=== PATIENT | female | born 1995 | race Hispanic/Latino ===

== ENCOUNTER → 2020-08-16 12:58 | Outpatient (CLI) | payer SELFPAY ==
[2020-08-16 13:16] LABS: Mucous, Urine 0 SEEN /hpf (<or=2+)
[2020-08-16 13:27] LABS: Color, Urine Straw (Yellow); Glucose, Dipstick Normal (Normal); Ketone-Dipstick Negative (Negative); Leukocyte Esterase-Dipstick Negative /ul (Negative); Nitrite-Dipstick Negative (Negative); Occult Blood-Urine 10 /ul (Negative); Protein-Dipstick 15 mg/dl (Negative); Urine Bilirubin Dipstick Negative (Negative); Urine Clarity Clear (Clear); Urine Urobilinogen Normal (Normal)
[2020-08-16 13:46] LABS: Bacteria RARE /hpf (None Seen); Red Blood Cells-Urine 0-5 SEEN /hpf (0-5); Squamous Epithelial Cells - UA 0-5 SEEN /hpf (5-10); White Blood Cells 0 SEEN /hpf (0-5)
== END ==
LOC: LAB 13:05
PROVIDERS: Visit Provider Nurse Practitioner Family
DX: R30.0 Dysuria (principal); R31.9 Hematuria, unspecified
CPT/HCPCS: 81001; 87086

== ENCOUNTER 2023-09-08 14:47 | Emergency (ER) | payer SELFPAY ==
[2023-09-08 14:48] VITALS: BP 167/90; PULSE 105; RESP 22; TEMP 37.2; O2SAT 98
[2023-09-08 17:34] VITALS: O2SAT 98
--- NOTE | 2023-09-08 17:34 | ED.RN ---
NO OLD EKG
[2023-09-08 17:47] VITALS: BP 150/81; BP 153/96; BP 157/102; PULSE 100; PULSE 95; PULSE 98
[2023-09-08 17:50] LABS: Bedside Glucose 100 mg/dL (74-106)
--- NOTE | 2023-09-08 18:09 | CT_ITS ---
STUDY: CT ABDOMEN AND PELVIS WITH CONTRAST REASON FOR EXAM: Male, 28 years old. Left sided pain RADIATION DOSAGE (If Supplied By Facility): CTDIvol = ( 11.46 ) mGy, DLP = ( 861.32 ) mGycm TECHNIQUE: IV 100mL Isovue-300 was administered. Transaxial images were obtained from the dome of the diaphragm to the symphysis pubis in the portal venous phase. Multiplanar coronal and sagittal images were reformatted. Individualized Dose Optimization Techniques Were Used For This CT. COMPARISON: No relevant prior comparison study available FINDINGS: LOWER CHEST: Lung bases are clear. No cardiomegaly or pericardial effusion. LIVER: The liver is normal in size, shape, and attenuation. No focal mass. GALLBLADDER AND BILIARY TREE: The gallbladder is normally distended. No gallstones. No gallbladder wall thickening or edema. No pericholecystic fluid. No intra- or extrahepatic biliary ductal dilation. PANCREAS: No focal cystic or solid mass. SPLEEN: Normal size without focal cystic or solid mass. ADRENAL GLANDS: No nodules. KIDNEYS AND URETERS: Normal renal size and position. No hydronephrosis or nephrolithiasis. PERITONEUM: No ascites or free air. No other fluid collection. BOWEL: The stomach is unremarkable. Normal caliber small bowel. There is no obstruction. No colonic wall thickening or inflammation. No free air or free fluid. No evidence of acute appendicitis. LYMPH NODES: No enlarged mesenteric or retroperitoneal lymph nodes. VESSELS: Aorta is non-dilated. URINARY BLADDER: Unremarkable. REPRODUCTIVE ORGANS: No pelvic masses. ABDOMINAL WALL: No discrete abdominal or pelvic wall hernia. BONES: No lytic or blastic abnormality. CT/Abdomen/Pelvis W IV Cont ONLY IMPRESSION: No acute findings in the abdomen or pelvis to explain the patient''s symptomatology. Electronically Signed: Alton Lopez MD at 18:55 [facility] ,
--- NOTE | 2023-09-08 18:21 | EX.ED.DYSGE1 ---
HPI History of Present Illness Chief Complaint: Syncope Informant: patient and family Narrative Narrative: Patient presents for syncope. History is through the patient using a family member for translation. They were offered a translation service but preferred to do this. His family member does seem like she is very good translating the information. I do feel that I get a good history. Patient states that last night he felt just a little bit off. Possibly a little dizzy although that is hard to explain. He has had a little bit of soreness in the left side of his abdomen. Occasionally it radiates up toward his shoulder. But he denies chest pain and he denies palpitations and he denies dyspnea at any time. He is not coughing. No exposure to COVID that he knows of. He has had some diarrhea for the last day but no black or blood. He went to work today and felt lightheaded. He ended up passing out. This happened a second time which is what prompted him to come in. He did have vomiting once but no blood or black. He had had a Gatorade but nothing really else to eat or drink. His only consistent complaint is left lateral abdominal pain. Patient has no chronic medical conditions He takes no medications He has no allergies He has had no surgery and no abdominal surgery There is no strong family history of any significant illness PFSH PFSH Allergy/AdvReac Type Severity Reaction Status Date / Time No Known Allergies Allergy Verified 09/08/23 14:48 Social History Smoking Status: Never smoker ROS ROS ED Constitutional Constitutional ED: Denies chills, fever(s), subjective or sweats Eyes Eyes: Denies change in vision or diplopia ENT ENT ED: Denies rhinorrhea or sore throat Cardiovascular Cardiovascular: Denies chest pain, palpitations or racing heartbeat Respiratory/Chest Respiratory/Chest: Denies cough, dyspnea or sputum Gastrointestinal Gastrointestinal: Reports abdominal pain, diarrhea, nausea and vomiting Genitourinary Genitourinary ED: Denies dysuria, hematuria or urinary frequency Musculoskeletal Musculoskeletal: Denies myalgias Integumentary Denies rash Neurologic Neurologic: Denies headache(s) Endocrine Endocrinology: Denies polydipsia or polyuria Hematologic/Lymphatic Hematologic/Lymphatic: Denies anemia, easy bleeding, easy bruising or lymphadenopathy Allergic/Immunologic Allergic/Immunologic ED: Denies urticaria EXAM Physical Exam Narrative Exam Narrative: CONSTITUTIONAL: Patient is nontoxic in appearance. The patient looks comfortable. He does not look pale. He is not diaphoretic. HEENT: No notable trauma. Mucous membranes mildly dry. No sinus tenderness. No indication of pain with swallowing. EYES: No conjunctival injection. No proptosis. No icterus. No pallor. CARDIOVASCULAR: Regular rate. Regular rhythm. No notable murmur. No JVD. Peripheral pulses are normal and strong x 4. No muffled heart tones. RESPIRATORY: No respiratory distress. Breathing is unlabored. No wheezes. No rhonchi. No rales. No pain with a deep breath. Saturations are normal at 98% on room air showing no hypoxia GASTROINTESTINAL: Not distended. Bowel sounds are normal. He does have mild tenderness in the left mid quadrant anteriorly. It really has not fully left lower or left upper. I feel no mass. There is no rebound or guarding. GENITOURINARY: No tenderness over the bladder. No CVA tenderness on either side. No vesicles or rash. MUSCULOSKELETAL: Atraumatic. No peripheral edema. No cord. No tenderness along the deep venous system. No asymmetry. NEUROLOGICAL: Patient is alert and appropriate. No focal deficit noted. SKIN: No noted rashes. No diaphoresis. PSYCHIATRIC: Patient is calm. Mood is appropriate. Const Vital Signs: 09/08/23 14:48 09/08/23 17:34 09/08/23 17:36 Temperature 99 F Temperature Source Temporal Pulse Rate 105 H Pulse Rate [Lying] Pulse Rate [Sitting (for 1 minute prior to obtaining)] Pulse Rate [Standing (for 1 minute prior to obtaining)] Respiratory Rate 22 H Respiratory Effort Normal Non-Labored Respiratory Pattern Normal Blood Pressure 167/90 H Blood Pressure [Lying] Blood Pressure [Sitting (for 1 minute prior to obtaining)] Blood Pressure [Standing (for 1 minute prior to obtaining)] Blood Pressure Mean 115 Blood Pressure Mean [Lying] Blood Pressure Mean [Sitting (for 1 minute prior to obtaining)] Blood Pressure Mean [Standing (for 1 minute prior to obtaining)] Pulse Ox 98 98 Oxygen Delivery Method Room Air Room Air 09/08/23 17:47 09/08/23 18:33 Temperature Temperature Source Pulse Rate Pulse Rate [Lying] 95 95 Pulse Rate [Sitting (for 1 minute prior to obtaining)] 100 110 H Pulse Rate [Standing (for 1 minute prior to obtaining)] 98 98 Respiratory Rate Respiratory Effort Respiratory Pattern Blood Pressure Blood Pressure [Lying] 150/81 H 150/81 H Blood Pressure [Sitting (for 1 minute prior to obtaining)] 153/96 H 153/96 H Blood Pressure [Standing (for 1 minute prior to obtaining)] 157/102 H 157/102 H Blood Pressure Mean Blood Pressure Mean [Lying] 104 104 Blood Pressure Mean [Sitting (for 1 minute prior to obtaining)] 115 115 Blood Pressure Mean [Standing (for 1 minute prior to obtaining)] 120 120 Pulse Ox Oxygen Delivery Method MDM MDM MDM Narrative Medical decision making narrative: Patient's CBC including white count hemoglobin and platelets are normal. Patient's electrolytes show minimal elevation of chloride but normal renal function and generally normal electrolytes. Tests are normal other than just a very mild elevations of ALT and alkaline phosphatase. Lipase is normal Patient's troponin is negative. My independent interpretation of the patient's CT scan of the abdomen with IV contrast shows no acute process and final reading is similar. Patient's blood pressure is now 134/72. He feels well. He has gotten up. He does not feel sick. Does not feel lightheaded. He states he still has a little soreness in the left upper quadrant. But his exam is overall benign. He may even have a little bit of ulcer disease. He may have had vagal reaction. We recommend that he use Prilosec [id number] and we will refer him to a primary physician. If he has recurrent symptoms he may need to return. Did verify that all his pain is in the abdomen. This is not up in the chest. He has no pleuritic pain. He is not coughing short of breath or hypoxic. I did use his expediter service order family member again with discharge. They did have multiple questions and these were all answered. She seems to be a very good expediter service order and I think the story and history and information past is clear and effective. Lab Data Attestation: I reviewed the patient's lab results. Labs: Laboratory Results - last 24 hr 09/08/23 09/08/23 17:32 18:27 WBC 9.5 RBC 5.46 Hgb 15.4 Hct 44.8 MCV 82.1 MCH 28.2 MCHC 34.4 RDW Std Deviation 38.1 RDW Coeff of Michaela 12.8 Plt Count 222 MPV 11.6 Immature Gran % (Auto) 0.900 Neut % (Auto) 84.2 H Lymph % (Auto) 10.4 L [place] % (Auto) 3.9 Eos % (Auto) 0.1 Baso % (Auto) 0.5 Absolute Neuts (auto) 8.0 H Absolute Lymphs (auto) 0.99 Nucleated RBC % 0 Sodium 139 Potassium 4.0 Chloride 108 H Carbon Dioxide 26.0 Anion Gap 5 BUN 10 Creatinine 0.86 Est GFR (MDRD) Af Amer 136 Est GFR (MDRD) Non-Af 112 BUN/Creatinine Ratio 11.7 Glucose 105 Calcium 8.9 Total Bilirubin 0.30 AST 22 ALT 73 H Alkaline Phosphatase 118 H Troponin I High Sens 6 Total Protein 7.6 Albumin 3.9 Globulin 3.7 Albumin/Globulin Ratio 1.1 Lipase 33 POC Glucose 100 Radiography Diagnostic Testing: Clinical Impression(s) from Imaging Studies Abdomen/Pelvis CT 09/08/23 18:09 IMPRESSION: No acute findings in the abdomen or pelvis to explain the patient''s symptomatology. Electronically Signed: Alton Lopez MD at 18:55 EST , Discharge Plan Triage Chief Complaint: Syncope ED Provider: Mick Cook Dx/Rx/DC Orders Clinical Impression: Left upper quadrant pain, Syncope Instructions: ED Fainting, Uncertain Cause, ED Peptic Ulcer Primary Care Provider: Care Physician,No Primary Referrals: Kalpana Esparza DO [Med Staff - Active Staff] - 3-5 Days Care Physician,No Primary [Primary Care Provider] - Print Language: [place] Disposition Disposition: Home, Self Care
--- NOTE | 2023-09-08 18:21 | ED.RN ---
NO OLD EKG
[2023-09-08] MEDS: Ondansetron 4 MG/2 ML Vial IV (18:28)
[2023-09-08] MEDS: 0.9% Normal Saline (1000mL) 1,000 ML 1000 ML IV (18:28)
[2023-09-08 18:33] VITALS: BP 150/81; BP 153/96; BP 157/102; PULSE 110; PULSE 95; PULSE 98
[2023-09-08 18:33] LABS: Absolute Lymphocyte Count 0.99 X10^3/uL (0.83-4.51); Basophil# 0.05 X10^3/uL; Basophil% 0.5 % (0-1); Eosinophil# 0.01 X10^3/uL; Eosinophils% 0.1 % (0-5); Hematocrit 44.8 % (40-54); Hemoglobin 15.4 g/dL (13.0-16.5); Lymphocyte # 0.99 X10^3/ul (0.83-4.51); Lymphocyte % 10.4 % (19-41); Mean Corp Hgb Conc 34.4 g/dL (32-36); Mean Corpuscular Hgb 28.2 pg (27.0-32.0); Mean Corpuscular Volume 82.1 fL (80-94); Mean Platelet Vol. 11.6 fl (6.2-12.0); Monocyte# 0.37 X10^3/uL; Monocyte% 3.9 % (0-10); NRBC Flagged by Analyzer 0 % (0-5); Neutrophil # 7.99 X10^3/uL (2.7-7.7); Neutrophil % 84.2 % (47-70); Platelet Count 222 K/mm3 (150-450); RBC Distribution Width CV 12.8 % (11.6-14.6); RBC Distribution Width SD 38.1 fl (35.1-43.9); Red Blood Count 5.46 M/mm3 (4.6-6.2); White Blood Count 9.5 K/mm3 (4.4-11.0)
[2023-09-08 18:52] LABS: ALB/GLOB Ratio 1.1 RATIO (0.9-2.4); AST(SGOT) 22 U/L (15-37); Alanine Aminotransfer ALT/SGPT 73 U/L (16-61); Albumin, Serum 3.9 g/dL (3.2-5.0); Alkaline Phosphatase 118 U/L (45-117); Anion Gap 5 (5-15); BUN 10 mg/dL (7-18); BUN/Creat Ratio 11.7 RATIO (10-20); Calcium,Total 8.9 mg/dL (8.5-10.1); Chloride 108 mmol/L (98-107); Creatinine, Serum 0.86 mg/dL (0.70-1.30); EST Glomerular Filtration Rate 112 mL/min (>60); Est Glom Filt Rate - Afr Amer 136 mL/min (>60); Globulin 3.7 g/dL (2.2-4.2); Glucose 105 mg/dL (74-106); Lipase 33 U/L (13-75); Protein, Total 7.6 g/dL (6.4-8.2); Sodium Level 139 mmol/L (136-145); Troponin-I HS 6 pg/mL (3.0-78.0)
[2023-09-08 22:40] VITALS: BP 134/77; PULSE 81; RESP 16; O2SAT 98
== END 2023-09-08 22:41 | disposition home or self-care (01) ==
PROVIDERS: Emergency Provider Emergency Medicine; Visit Provider Emergency Medicine
DX: R10.12 Left upper quadrant pain (principal); R55 Syncope and collapse; R11.2 Nausea with vomiting, unspecified; R19.7 Diarrhea, unspecified
CPT/HCPCS: 74177; 80053; 82962; 83690; 84484; 85025; 87428; 93005; 96361; 96374; 99285; J7030; Q9967; J2405